=== PATIENT | male | born 1960 | race Caucasian/White ===

== ENCOUNTER 2024-07-09 09:10 | Outpatient (CLI) | payer BC | END 2024-07-09 09:11 | disposition home or self-care (01) | LOC: SCSMRI 09:10 | PROVIDERS: ATTEND Orthopaedic Surgery | DX: M75.121 Complete rotator cuff tear or rupture of right shoulder, not specified as traumatic (principal); S43.431A Superior glenoid labrum lesion of right shoulder, initial encounter; M62.511 Muscle wasting and atrophy, not elsewhere classified, right shoulder ==

== ENCOUNTER 2025-08-15 09:18 | Outpatient (CLI) | payer OTHER | END 2025-08-15 09:19 | disposition home or self-care (01) | LOC: CT 09:18 | PROVIDERS: ATTEND Orthopaedic Surgery | DX: Z01.818 Encounter for other preprocedural examination (principal); M17.12 Unilateral primary osteoarthritis, left knee ==

== ENCOUNTER 2025-08-20 05:42 | Observation (INO) | payer BC ==
[2025-08-13 09:19] VITALS: BMI 27.9
[2025-08-20] MEDS ORDERED: fentaNYL PF 100 MCG/2 ML SYRINGE ONE ×3 (06:14→09:25)
[2025-08-20] MEDS ORDERED: Bupivacaine 0.25% HCL 30 ML VIAL ONE (06:14)
[2025-08-20] MEDS ORDERED: Tranexamic Acid 1,000 MG/10 ML VIAL ONE ×2 (06:17→09:25)
[2025-08-20] MEDS ORDERED: Vancomycin HCl 1.5 GM VIAL ONE (06:17)
[2025-08-20] MEDS ORDERED: CEFAZOLIN 2 GM VIAL ONE (06:55)
[2025-08-20] MEDS ORDERED: PROPOFOL 20 ML ONE (07:00)
[2025-08-20] MEDS ORDERED: Ropivacaine 0.5% HCl/PF (150 MG/30 ML VIAL) ONE (07:16)
[2025-08-20] MEDS ORDERED: Lidocaine 1% (PF) 30 ML VIAL ONE (07:16)
[2025-08-20] MEDS ORDERED: Ondansetron PF 4 MG/2 ML Vial IVP PRN ×2 (07:45→08:46)
[2025-08-20] MEDS ORDERED: Ropivacaine 0.2% 550 ML 550 ML NERVE BLCK SCH (07:45)
[2025-08-20] MEDS ORDERED: HYDROcodone/Acetaminophen 10/325 mg Tablet PO PRN (07:45)
[2025-08-20] MEDS ORDERED: Ondansetron PF 4 MG/2 ML Vial ONE (08:26)
[2025-08-20] MEDS ORDERED: diphenhydrAMINE 25 MG CAP PO PRN (08:46)
[2025-08-20] MEDS ORDERED: HYDROmorphone 0.5 MG/0.5 ML SYRINGE ONE (09:26)
[2025-08-20] MEDS: Ketorolac Tromethamine 30 MG (1 mL) VIAL IVP SCH (12:49)
[2025-08-20 15:46] VITALS: BMI 27.9
[2025-08-20] MEDS: Losartan 25 MG TAB PO SCH (20:15)
[2025-08-20] MEDS: Aspirin 81 mg Enteric Coated Tablet PO SCH (20:15)
[2025-08-20] MEDS: Atenolol 25 MG TAB PO SCH (20:46)
[2025-08-20] MEDS: Acetaminophen 325 MG TAB PO PRN (20:49)
[2025-08-21 05:47] LABS: Hematocrit 43.3 % (42.0-52.0); Hemoglobin 13.7 g/dL (14.0-18.0); Mean Corpuscular Hemoglobin 25.8 pg (27.0-31.0); Mean Corpuscular Volume 81.4 fL (78.0-98.0); Platelet Count 154 10x3/uL (130-400); Red Blood Cell (RBC) Count 5.32 mill/uL (4.70-6.10); White Blood Cell (WBC) Count 10.03 10x3/uL (4.8-10.8)
[2025-08-21] MEDS: Ferrous Gluconate 324 MG TAB PO SCH (08:04)
[2025-08-21] MEDS: Multivitamin W/ Minerals 1 TAB PO SCH (08:04)
[2025-08-21] MEDS: Senokot S 8.6-50 MG TAB PO SCH (08:06)
[2025-08-21] MEDS: HYDROcodone/Acetaminophen 10/325 mg Tablet PO PRN (12:52)
[2025-08-21 14:11] VITALS: BP 134/76; TEMP 98.4
== END 2025-08-21 13:10 | disposition home or self-care (01) ==
LOC: SDC 05:42 → SURG A 11:39 → SDC 14:10
PROVIDERS: ADMIT Orthopaedic Surgery; ATTEND Orthopaedic Surgery
PROC: 0SRD0JA Replacement of Left Knee Joint with Synthetic Substitute, Uncemented, Open Approach (ICD-10-PCS; principal; 2025-08-20)
DX: M17.12 Unilateral primary osteoarthritis, left knee (principal); I10 Essential (primary) hypertension; G47.33 Obstructive sleep apnea (adult) (pediatric); K21.9 Gastro-esophageal reflux disease without esophagitis
CPT/HCPCS: 0055T; 27447; 64448; 36415; 85027; A4306; C1713; C1776; C1889; J0665; J1100; J1171; J1885; J2250; J2704; J2795; J7030